=== PATIENT | male | born 1965 | race Caucasian/White ===

== ENCOUNTER 2023-04-06 09:32 | Emergency (ER) | payer SELFPAY ==
[2023-04-06 09:35] VITALS: BP 118/78; PULSE 68; RESP 19; TEMP 36.6; O2SAT 97
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
== END 2023-04-06 12:07 | disposition home or self-care (01) ==
PROVIDERS: Emergency Provider Emergency Medicine Emergency Medical Services
DX: M25.512 Pain in left shoulder (principal)
CPT/HCPCS: 73030; 99282; 99283

== ENCOUNTER 2023-04-23 09:32 | Outpatient (AMB) | payer SELFPAY ==
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
== END 2023-04-23 11:22 | disposition home or self-care (01) ==
PROVIDERS: Visit Provider Physician Assistant
DX: S43.102A Unspecified dislocation of left acromioclavicular joint, initial encounter (principal)
CPT/HCPCS: 99203

== ENCOUNTER 2023-04-23 10:41 | Outpatient (REF) | payer SELFPAY ==
--- NOTE | ~2023-04-23 | XR_ITS ---
EXAMINATION: XR SHOULDER, LEFT CLINICAL INFORMATION: Reason for Exam M25.512 - Pain in left shoulder COMPARISON: Shoulder radiographs 04/06/2023 TECHNIQUE: Three views of the shoulder. FINDINGS: No acute fracture. Widening of the acromioclavicular joint space and coracoclavicular joint space unchanged from prior compatible with a chronic acromioclavicular separation. There is foreshortening of the distal clavicle which may be posttraumatic or postsurgical in etiology with an inferior bulky osteophyte. Glenohumeral joint space is maintained. Soft tissues are unremarkable. XR/XR shoulder LT min 2V IMPRESSION: 1. Widening of the acromioclavicular joint space and coracoclavicular joint space unchanged from prior compatible with a chronic acromioclavicular separation. There is foreshortening of the distal clavicle which may be posttraumatic or postsurgical in etiology with an inferior bulky osteophyte.
== END 2023-04-23 10:42 | disposition home or self-care (01) ==
LOC: HO.HOSX 10:41
PROVIDERS: Visit Provider Physician Assistant
DX: S43.102A Unspecified dislocation of left acromioclavicular joint, initial encounter (principal)
CPT/HCPCS: 73030; 99202